=== PATIENT | male | born 1965 | race African-American/Black ===

== ENCOUNTER 2020-02-25 09:35 | Inpatient (IN) | payer OTHER ==
--- NOTE | 2020-02-25 10:06 | BHS.RME ---
Substance Use & Tx History - Substance Use History Alcohol Substance amount: 1.5 pints Vodka Frequency of use: Daily Substance route: Oral Date of Last Use: 02/24/20 Cocaine-Crack Substance amount: $300 Frequency of use: Daily Substance route: Smoking Date of Last Use: 02/24/20 Marijuana/Hashish Substance amount: 5 blunts Frequency of use: Daily Substance route: Smoking Date of Last Use: 02/24/20 Klonopin Substance amount: one white, one orange Frequency of use: Daily Substance route: Oral Date of Last Use: 02/24/20 Nicotine Substance amount: 10 cigs Frequency of use: Daily Substance route: Smoking Date of Last Use: 02/25/20 Heroin Substance amount: 2 bags Frequency of use: Less than 3 times per week Substance route: Inhalation (ex: sniffing or snorting) Date of Last Use: 02/24/20 Physical/Psych/Mental Status - Behavior General Behavior: Increased activity (restlessness, agitation) Eye Contact: Normal - Cooperativeness Cooperativeness: Cooperative - Thinking Thought Processes: Tight Thought content: Future oriented - Physical Health Problems Is patient presently having any pain?: No Does patient presently have any injuries (include location): No Does patient currently have a fever: No COWS - Scale Resting Pulse: 0= [place] 80 or Below Sweatin= Chills/Flushing Restless Observation: 1= Difficult to Sit Still Pupil Size: 1= Pupils >than Normal Bone or Joint Aches: 1= Mild Discomfort Runny Nose/ Eye Tearin= None GI Upset > 30mins: 0= None Tremor Observation: 2= Slight Tremor Visible Yawning Observation: 0= None Anxiety or Irritability: 2=Irritable/Anxious Goose Flesh Skin: 0=Smooth Skin COWS Score: 8 CIWA Nausea/Vomitin Muscle Tremors: 3 Anxiety: 3 Agitation: 1-Slight > Activity Paroxysmal Sweats: 1-Minimal Palms Moist Orientation: 0-Oriented Tacttile Disturbances: 0-None Auditory Disturbances: 1-Very Mild Visual Disturbances: 1-Very Mild Sensitivity Headache: 0-None Present CIWA-Ar Total Score: 12
[2020-02-25 10:34] VITALS: BMI 34.5
--- NOTE | 2020-02-25 11:06 | HP ---
COWS - Scale Resting Pulse: 0= [place] 80 or Below Sweatin= Chills/Flushing Restless Observation: 1= Difficult to Sit Still Pupil Size: 1= Pupils >than Normal Bone or Joint Aches: 1= Mild Discomfort Runny Nose/ Eye Tearin= None GI Upset > 30mins: 0= None Tremor Observation: 2= Slight Tremor Visible Yawning Observation: 0= None Anxiety or Irritability: 2=Irritable/Anxious Goose Flesh Skin: 0=Smooth Skin COWS Score: 8 CIWA Score Nausea/Vomitin Muscle Tremors: 3 Anxiety: 3 Agitation: 1-Slight > Activity Paroxysmal Sweats: 1-Minimal Palms Moist Orientation: 0-Oriented Tacttile Disturbances: 0-None Auditory Disturbances: 1-Very Mild Visual Disturbances: 1-Very Mild Sensitivity Headache: 0-None Present CIWA-Ar Total Score: 12 - Admission Criteria OASAS Guidelines: Admission for Medically Managed Detox: Requires at least one of the followin. CIWA greater than 12 2. Seizures within the past 24 hours 3. Delirium tremens within the past 24 hours 4. Hallucinations within the past 24 hours 5. Acute intervention needed for co occurring medical disorder 6. Acute intervention needed for co occurring psychiatric disorder 7. Severe withdrawal that cannot be handled at a lower level of care (continued vomiting, continued diarrhea, abnormal vital signs) requiring intravenous medication and/or fluids 8. Admitting History and Physical - Admission Chief Complaint: Detox from alcohol, heroin, crack, benzo's History of Present Illness: CC: 'Detox from alcohol, heroin, crack, benzo's' HPI: Hiro is a 55 year old with polysubstance abuse (alcohol, heroin, crack, benzo's, marijuana, PCP), who presents for detox. He has attempted detox 3 times before. He was last admitted at [facility] detox 6 weeks ago and received 4 days of Librium; however, he relapsed the same day. He is a and suffers from PTSD; he is not currently on medication, previously on Remeron. 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) Heroin Substance amount: 2 bags Frequency of use: Every two days Substance route: Inhalation (ex: sniffing or snorting) Date of Last Use: 02/24/20 Cocaine-Crack Substance amount: $300 Frequency of use: Daily Substance route: Smoking Date of Last Use: 02/24/20 Age of first use: 32 Marijuana/Hashish Substance amount: 5 blunts Frequency of use: Daily Substance route: Smoking Date of Last Use: 02/24/20 Klonopin Substance amount: one white, one orange (2 mg/day) Frequency of use: Daily Substance route: Oral Date of Last Use: 02/24/20 Age of first use: 49 Nicotine Substance amount: 10 cigs Frequency of use: Daily Substance route: Smoking Date of Last Use: 02/25/20 PMH: None PSH:None Psych: depression, anxiety, PTSD--admitted at [facility] 3 years ago Social: Homeless Legal: None History Source: Patient Limitations to Obtaining History: No Limitations - Smoking History Smoking history: Current every day smoker Have you smoked in the past 12 months: Yes Aproximately how many cigarettes per day: 10 - Alcohol/Substance Use Hx Alcohol Use: Yes - Social History Usual Living Arrangement: Yes: Alone Admission [facility] Chief Complaint: Detox from alcohol, heroin, crack, benzo's Allergies/Adverse Reactions: Allergies Allergy/AdvReac Type Severity Reaction Status Date / Time shellfish derived Allergy Intermediate Swelling Verified 02/25/20 10:36 Exam Limitations: No Limitations - Ebola screening Have you traveled outside of the country in the last 21 days: No Have you had contact with anyone from an Ebola affected area: No Have you been sick,other than usual withdrawal symptoms: No Do you have a fever: No - Review of Systems Constitutional: No Symptoms Reported EENT: denies: Eye Pain, Ear Pain, Nose Congestion Respiratory: denies: Cough, Shortness of Breath Cardiac: denies: Chest Pain, Edema, Syncope GI: reports: No Symptoms Reported. denies: Constipated, Diarrhea, Nausea, Vomiting : reports: No Symptoms Reported Musculoskeletal: reports: No Symptoms Reported, Other (low back pain) Neuro: denies: Headache, Numbness, Tingling Endocrine: reports: No Symptoms Reported Hematology: reports: No Symptoms Reported. denies: Blood Clots Psychiatric: reports: No Sypmtoms Reported, Judgement Intact, Orientated x3 Patient History - Patient Medical History Hx Asthma: No Hx Chronic Obstructive Pulmonary Disease (COPD): No Hx Cardiac Disorders: No Hx Hypertension: No Hx Seizures: No Hx Gastrointestinal Disorders: No Hx Genitourinary Disorders: No Hx Sexually Transmitted Disorders: No Hx Renal Disease (ESRD): No Hx Depression: Yes Hx Suicide Attempt: No Hx Schizophrenia: No - Patient Surgical History Past Surgical History: No Hx Neurologic Surgery: No Hx Cataract Extraction: No Hx Cardiac Surgery: No Hx Lung Surgery: No Hx Breast Surgery: No Hx Breast Biopsy: No Hx Abdominal Surgery: No Hx Appendectomy: No Hx Cholecystectomy: No Hx Genitourinary Surgery: No Hx Section: No Hx Orthopedic Surgery: No Anesthesia Reaction: No - PPD History Previous Implant?: Yes Documented Results: Negative w/proof Implanted On Prior R Admission?: No - Smoking Cessation Smoking history: Current every day smoker Have you smoked in the past 12 months: Yes Aproximately how many cigarettes per day: 10 Hx Chewing Tobacco Use: No Initiated information on smoking cessation: Yes 'Breaking Loose' booklet given: 02/25/20 - Substances abused Alcohol Substance route: Oral Frequency: Daily Amount used: 1-2 pts vodka Age of first use: 16 Date of last use: 02/24/20 Heroin Substance route: Inhalation Frequency: Daily Amount used: 2bags Age of first use: 49 Date of last use: 02/24/20 Crack Substance route: Smoking Frequency: Daily Amount used: $300 Age of first use: 32 Date of last use: 02/24/20 Benzodiazepine (Klonopin) Substance route: Oral Frequency: Daily Amount used: 1 white/ 1 orange Age of first use: 49 Date of last use: 02/24/20 Marijuana/Hashish Substance route: Smoking Frequency: Daily Amount used: 5 blunts Age of first use: 16 Date of last use: 02/24/20 Admission Physical Exam BHS - Vital Signs Vital Signs: Vital Signs - 24 hr 02/25/20 02/25/20 10:31 10:37 Temperature 97.4 F L 97.4 F L Pulse Rate 71 71 Respiratory 19 19 Rate Blood Pressure 130/83 130/83 - Physical General Appearance: Yes: Within Normal Limits HEENTM: Yes: Hearing grossly Normal, Normocephalic, Normal Voice, HUNTER Respiratory: Yes: Within Normal Limits, Lungs Clear, Normal Breath Sounds, No Respiratory Distress, No Accessory Muscle Use Neck: Yes: Within Normal Limits Breast: Yes: Breast Exam Deferred Cardiology: Yes: Within Normal Limits, Regular Rhythm, Regular Rate, S1, S2 Abdominal: Yes: Within Normal Limits, Non Tender, Flat, Soft Genitourinary: Yes: Within Normal Limits Back: Yes: Within Normal Limits Musculoskeletal: Yes: Within Normal Limits, full range of Motion, Gait Steady, Back pain Extremities: Yes: Within Normal Limits, Normal Inspection, Normal Range of Motion. No: Tremors, Coldness, Cyanosis Neurological: Yes: Within Normal Limits, Fully Oriented, Normal Mood/Affect, Normal Response Integumentary: Yes: Dry, Warm, Other (raised papule from bee sting on posterior neck, not tender) - Diagnostic (1) Alcohol withdrawal Current Visit: Yes Status: Acute Qualifiers: Complication of substance-induced condition: uncomplicated Qualified Code(s): F10.230 - Alcohol dependence with withdrawal, uncomplicated (2) Opioid abuse Current Visit: Yes Status: Acute (3) Cocaine abuse Current Visit: Yes Status: Acute (4) Benzodiazepine abuse Current Visit: Yes Status: Acute (5) Marijuana use Current Visit: Yes Status: Acute (6) Nicotine addiction Current Visit: Yes Status: Acute Qualifiers: Nicotine product type: cigarettes (7) PCP (phencyclidine) abuse Current Visit: Yes Status: Acute (8) PTSD (post-traumatic stress disorder) Current Visit: Yes Status: Chronic (9) Anxiety Current Visit: Yes Status: Chronic (10) Depression Current Visit: Yes Status: Chronic Cleared for Admission S - Detox or Rehab [facility] Level of Care: Medically Managed Screened but not Admitted - Documentation of Visit Screened but not Admitted: No Breathalyzer - Breathalyzer Breathalyzer: 0 Urine Drug Screen - Test Device Lot number: [id number] Expiration date: 02/14/22 - Control Is test valid?: Yes - Results Drug screen NEGATIVE: No Urine drug screen results: THC-Marijuana, RAULITO-Cocaine, MOP-Opiates, BAR- Barbiturates Inpatient Rehab Admission - Rehab Decision to Admit Inpatient rehab admission?: No
[2020-02-25] MEDS ORDERED: MAGNESIUM HYDROX 2400MG/30ML ORAL SUSPENSION 30 ML CUP PO PRN (11:23)
[2020-02-25] MEDS ORDERED: BISMUTH SUBSALICYLATE 262 MG/15 ML BTL PO PRN (11:23)
[2020-02-25] MEDS ORDERED: ACETAMINOPHEN 325 MG TABLET (FP) PO PRN ×2 (11:23)
[2020-02-25] MEDS ORDERED: MAG HYDROX/AL HYDROX/SIMETH 30 ML UNIT-DOSE CUP PO PRN (11:23)
[2020-02-25] MEDS ORDERED: MENTHOL/PHENOL 1 EACH UD MM PRN (11:23)
[2020-02-25] MEDS ORDERED: MAGNESIUM CITRATE 300 ML BOTTLE PO PRN (11:23)
[2020-02-25] MEDS ORDERED: ONDANSETRON *ODT* 4 MG TABLET SL ONE (11:23)
[2020-02-25] MEDS ORDERED: NICOTINE POLACRILEX 2 MG GUM BUC PRN (11:23)
[2020-02-25] MEDS: chlordiazePOXIDE HCL 25 MG CAPSULE PO PRN (12:02)
[2020-02-25] MEDS: NICOTINE 21 MG/24 HOURS TOPICAL PATCH TD SCH (12:11)
--- NOTE | 2020-02-25 15:01 | PN ---
[facility] Progress Note Note: Patient was approached at bedside. 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 I will see you tomorrow". Please reconsult tomorrow if patient is willing to see a psychiatrist
[2020-02-25 15:14] LABS: HEMATOCRIT 40.4 % (35.4-49); HEMOGLOBIN 13.2 GM/dL (11.7-16.9); MCH 27.8 pg (25.7-33.7); MCHC 32.6 g/dl (32.0-35.9); MEAN CELL VOLUME 85.2 fl (80-96); MEAN PLT VOLUME 8.4 fl (7.5-11.1); PLATELET COUNT 262 K/MM3 (134-434); RBC 4.74 M/mm3 (4.00-5.60); RDW 15.5 % (11.9-15.9); WHITE BLOOD COUNT 6.7 K/mm3 (4.0-10.0)
[2020-02-25 15:25] LABS: ALBUMIN 3.8 g/dl (3.4-5.0); BILIRUBIN,TOTAL 0.3 mg/dL (0.2-1); BLOOD UREA NITROGEN 19.1 mg/dL (7-18); CALCIUM 9.1 mg/dL (8.5-10.1); CREATININE 1.2 mg/dL (0.55-1.3); POTASSIUM 3.6 mmol/L (3.5-5.1); TOT PROT 7.4 g/dl (6.4-8.2)
--- NOTE | 2020-02-25 15:47 | EKG ---
Test Reason : Blood Pressure : / mmHG Vent. Rate : 070 BPM Atrial Rate : 070 BPM P-R Int : 160 ms QRS Dur : 092 ms QT Int : 406 ms P-R-T Axes : 061 050 -63 degrees QTc Int : 438 ms NORMAL SINUS RHYTHM POSSIBLE LEFT ATRIAL ENLARGEMENT T WAVE ABNORMALITY, CONSIDER INFERIOR ISCHEMIA ABNORMAL ECG NO PREVIOUS ECGS AVAILABLE Confirmed by LUX HERNANDEZ MD ([id number]) on 02/25/2020 3:47:06 PM Referred By: Confirmed By:LUX HERNANDEZ MD
--- NOTE | 2020-02-25 16:28 | PN ---
Teaching Attending Note Name of Resident: Gemini Maria ATTENDING PHYSICIAN STATEMENT I saw and evaluated the patient. I reviewed the resident's note and discussed the case with the resident. I agree with the resident's findings and plan as documented. SUBJECTIVE: OBJECTIVE: ASSESSMENT AND PLAN: 1. Alcohol use disorder Plan 1. Librium detox protocol
[2020-02-25] MEDS: METHOCARBAMOL 500 MG TABLET PO PRN (17:42)
[2020-02-25] MEDS: IBUPROFEN 400 MG TABLET (FP) PO PRN (17:42)
[2020-02-25] MEDS: chlordiazePOXIDE HCL 25 MG CAPSULE PO SCH ×2 (17:42→22:33)
[2020-02-25] MEDS: THIAMINE HCL 100 MG TABLET (FP) PO SCH (22:33)
[2020-02-25] MEDS: MELATONIN 5 MG TABLETS PO SCH (22:33)
[2020-02-26] MEDS: chlordiazePOXIDE HCL 25 MG CAPSULE PO SCH ×4 (06:08→22:52)
[2020-02-26] MEDS: PRENATAL VITAMINS W/ FOLIC ACID TABLET (FP) PO SCH (10:54)
[2020-02-26] MEDS: NICOTINE 21 MG/24 HOURS TOPICAL PATCH TD SCH (10:55)
--- NOTE | 2020-02-26 14:38 | CONSULT ---
[facility] Psychiatric Consult - Data Date of interview: 02/26/20 Admission source: [facility] Identifying data: Patient is approached at bedside for psychiatric evaluation. Found to be confrontational, abrasive, uncooperative and dismissive of this engineering writer. " Why do I have to talk to psychiatrists ? I don't have to answer to your questions. I don't need your services." Nursing staff is made aware of patient's refusal of psychiatric services.
--- NOTE | 2020-02-26 15:23 | PN ---
S CIWA - CIWA Score Nausea/Vomitin-No Nausea/No Vomiting Muscle Tremors: 2 Anxiety: 4-Mod. Anxious/Guarded Agitation: 2 Paroxysmal Sweats: 1-Minimal Palms Moist Orientation: 0-Oriented Tacttile Disturbances: 2-Mild Itch/Numbness/Burn Auditory Disturbances: 1-Very Mild Visual Disturbances: 0-None Headache: 0-None Present CIWA-Ar Total Score: 12 S COWS - Scale Resting Pulse: 1= [place] 81-100 Sweatin= Chills/Flushing Restless Observation: 0= Sits Still Pupil Size: 0= Normal to Room Light Bone or Joint Aches: 2= Severe Diffuse Aches Runny Nose/ Eye Tearin= None GI Upset > 30mins: 0= None Tremor Observation of Outstretched Hands: 0= None Yawning Observation: 1= 1-2x During Session Anxiety or Irritability: 2=Irritable/Anxious Goose Flesh Skin: 0=Smooth Skin COWS Score: 7 S Progress Note (SOAP) Subjective: Anxious, Fatigue, Body Aches. Objective: Patient A & O X 3; In No Acute Distress. 02/26/20 15:21 Vital Signs Temperature 97.1 F L 02/26/20 12:48 Pulse Rate 89 02/26/20 12:48 Respiratory Rate 16 02/26/20 12:48 Blood Pressure 131/79 02/26/20 12:48 O2 Sat by Pulse Oximetry (%) 95 02/26/20 12:48 Laboratory Tests 02/25/20 02/25/20 02/25/20 11:05 11:05 11:05 WBC 6.7 RBC 4.74 Hgb 13.2 Hct 40.4 MCV 85.2 MCH 27.8 MCHC 32.6 RDW 15.5 Plt Count 262 MPV 8.4 Sodium 142 Potassium 3.6 Chloride 109 H Carbon Dioxide 24 Anion Gap 9 BUN 19.1 H Creatinine 1.2 Est GFR (CKD-EPI)AfAm 80.10 Est GFR (CKD-EPI)NonAf 69.11 Random Glucose 176 H Calcium 9.1 Total Bilirubin 0.3 AST 20 ALT 35 Alkaline Phosphatase 102 Total Protein 7.4 Albumin 3.8 Syphilis Serology Non-reactive COVID-19 (MADDIE) 02/25/20 12:45 WBC RBC Hgb Hct MCV MCH MCHC RDW Plt Count MPV Sodium Potassium Chloride Carbon Dioxide Anion Gap BUN Creatinine Est GFR (CKD-EPI)AfAm Est GFR (CKD-EPI)NonAf Random Glucose Calcium Total Bilirubin AST ALT Alkaline Phosphatase Total Protein Albumin Syphilis Serology COVID-19 (MADDIE) Not detected Lab Results noted. Glucose Level noted to be elevated. Patient denies known history of Diabetes Mellitus. 02/26/20 15:22 02/26/20 15:22 Assessment: 02/26/20 15:22 WITHDRAWAL SYMPTOMS. Plan: Continue Detox. Increase Daily Oral Water Intake. Fasting Glucose Level ordered for Tomorrow AM for elevated Random Glucose Level noted on Detox Admission laboratory assessment.
[2020-02-26] MEDS: THIAMINE HCL 100 MG TABLET (FP) PO SCH (22:52)
[2020-02-26] MEDS: MELATONIN 5 MG TABLETS PO SCH (22:52)
[2020-02-27] MEDS: chlordiazePOXIDE HCL 25 MG CAPSULE PO SCH ×4 (06:09→22:49)
[2020-02-27] MEDS: NICOTINE 21 MG/24 HOURS TOPICAL PATCH TD SCH (11:21)
[2020-02-27] MEDS: PRENATAL VITAMINS W/ FOLIC ACID TABLET (FP) PO SCH (11:21)
--- NOTE | 2020-02-27 17:09 | PN ---
S CIWA - CIWA Score Nausea/Vomitin-Mild Nausea/No Vomiting Muscle Tremors: 2 Anxiety: 2 Agitation: 2 Paroxysmal Sweats: 2 Orientation: 0-Oriented Tacttile Disturbances: 0-None Auditory Disturbances: 0-None Visual Disturbances: 0-None Headache: 0-None Present CIWA-Ar Total Score: 9 BHS Progress Note (SOAP) Subjective: Interrupted sleep Objective: 02/27/20 17:06 Last Vital Signs Temp Pulse Resp BP Pulse Ox 97.1 F L 84 16 129/71 98 02/27/20 13:37 02/27/20 13:37 02/27/20 13:37 02/27/20 13:37 02/27/20 13:37 Laboratory Tests 02/25/20 02/25/20 02/25/20 11:05 11:05 11:05 WBC 6.7 RBC 4.74 Hgb 13.2 Hct 40.4 MCV 85.2 MCH 27.8 MCHC 32.6 RDW 15.5 Plt Count 262 MPV 8.4 Sodium 142 Potassium 3.6 Chloride 109 H Carbon Dioxide 24 Anion Gap 9 BUN 19.1 H Creatinine 1.2 Est GFR (CKD-EPI)AfAm 80.10 Est GFR (CKD-EPI)NonAf 69.11 Random Glucose 176 H Calcium 9.1 Total Bilirubin 0.3 AST 20 ALT 35 Alkaline Phosphatase 102 Total Protein 7.4 Albumin 3.8 Syphilis Serology Non-reactive COVID-19 (MADDIE) 02/25/20 12:45 WBC RBC Hgb Hct MCV MCH MCHC RDW Plt Count MPV Sodium Potassium Chloride Carbon Dioxide Anion Gap BUN Creatinine Est GFR (CKD-EPI)AfAm Est GFR (CKD-EPI)NonAf Random Glucose Calcium Total Bilirubin AST ALT Alkaline Phosphatase Total Protein Albumin Syphilis Serology COVID-19 (MADDIE) Not detected Labs reviewed: azotemia and hyperglycemia Assessment: 02/27/20 17:07 Withdrawal sxs Noted with azotemia and hyperglycemia Plan: Continue detox Encourage PO water intake Azotemia: encourage to drink more water Hyperglycemia: denies DM, repeat bmp, send A1c
[2020-02-27] MEDS: chlordiazePOXIDE HCL 25 MG CAPSULE PO PRN (20:02)
[2020-02-27] MEDS: THIAMINE HCL 100 MG TABLET (FP) PO SCH (22:49)
[2020-02-27] MEDS: MELATONIN 5 MG TABLETS PO SCH (22:49)
[2020-02-28] MEDS ORDERED: chlordiazePOXIDE HCL 10 MG CAPSULE PO PRN
[2020-02-28] MEDS: chlordiazePOXIDE HCL 10 MG CAPSULE PO SCH ×4 (06:30→22:34)
--- NOTE | 2020-02-28 09:09 | PN ---
S Progress Note Note: pt had ordered repeat lab work for this AM; however, pt refused further lab drawn. pt was explained the reason for repeat lab to make sure his BUN level is decreasing however he states I dont want any blood drawn. d/c order.
[2020-02-28] MEDS: NICOTINE 21 MG/24 HOURS TOPICAL PATCH TD SCH (11:07)
[2020-02-28] MEDS: PRENATAL VITAMINS W/ FOLIC ACID TABLET (FP) PO SCH (11:07)
--- NOTE | 2020-02-28 11:23 | PN ---
[facility] CIWA - CIWA Score Nausea/Vomitin-No Nausea/No Vomiting Muscle Tremors: 1-None Visible, but Harper Anxiety: 1-Mildly Anxious Agitation: 1-Slight > Activity Paroxysmal Sweats: No Perspiration Orientation: 0-Oriented Tacttile Disturbances: 0-None Auditory Disturbances: 0-None Visual Disturbances: 0-None Headache: 0-None Present CIWA-Ar Total Score: 3 BHS Progress Note (SOAP) Subjective: tired Objective: 02/28/20 11:23 Vital Signs Temperature 97.3 F L 02/28/20 06:00 Pulse Rate 75 02/28/20 06:00 Respiratory Rate 18 02/28/20 06:00 Blood Pressure 142/87 02/28/20 06:00 O2 Sat by Pulse Oximetry (%) 96 02/28/20 06:36 aaox3 ambulating no acute distress Assessment: 02/28/20 11:23 mild withdrawals Plan: continue detox
[2020-02-28] MEDS: IBUPROFEN 400 MG TABLET (FP) PO PRN (14:44)
[2020-02-28] MEDS: METHOCARBAMOL 500 MG TABLET PO PRN (14:44)
[2020-02-28] MEDS: MELATONIN 5 MG TABLETS PO SCH (22:34)
[2020-02-28] MEDS: THIAMINE HCL 100 MG TABLET (FP) PO SCH (22:34)
[2020-02-29] MEDS ORDERED: chlordiazePOXIDE HCL 10 MG CAPSULE PO SCH (05:00)
[2020-02-29 06:45] VITALS: BP 137/68; PULSE 76; TEMP 97.8
--- NOTE | 2020-02-29 08:41 | PN ---
[facility] Progress Note Note: Pt was encouraged to stay until seen by medical provider however pt refused and insisted to leave. pt chose to sign out AMA regardless of risk of relapse, seizure, DT, OD and/ loss. pt was escorted off the unit before 8am by security due to his aggression and impulsive behaviour.
--- NOTE | 2020-02-29 08:48 | DS ---
[facility] Detox Discharge Summary Admission Date: 02/25/20 - History Present History: Alcohol Dependence, Cannabis Dependence, Cocaine Dependence, Pcp Dependence - Physical Exam Results Vital Signs: Vital Signs Temperature 97.8 F 02/29/20 06:43 Pulse Rate 76 02/29/20 06:43 Respiratory Rate 18 02/29/20 06:43 Blood Pressure 137/68 02/29/20 06:43 O2 Sat by Pulse Oximetry (%) 100 02/29/20 06:43 - Medication Discharge Medications: Ambulatory Orders NK [No Known Home Medication] 02/25/20 - Diagnosis (1) Alcohol withdrawal Status: Chronic Qualifiers: Complication of substance-induced condition: uncomplicated Qualified Code(s): F10.230 - Alcohol dependence with withdrawal, uncomplicated (2) Benzodiazepine abuse Status: Chronic (3) Cocaine abuse Status: Chronic (4) Marijuana use Status: Acute (5) Nicotine addiction Status: Chronic Qualifiers: Nicotine product type: cigarettes Substance use status: uncomplicated Qualified Code(s): F17.210 - Nicotine dependence, cigarettes, uncomplicated (6) Opioid abuse Status: Acute (7) PCP (phencyclidine) abuse Status: Chronic (8) Anxiety Status: Chronic (9) Depression Status: Chronic (10) PTSD (post-traumatic stress disorder) Status: Chronic - AMA Did Patient Leave Against Medical Advice: Yes
[2020-03-01] MEDS ORDERED: chlordiazePOXIDE HCL 10 MG CAPSULE PO ONE (05:00)
== END 2020-02-29 07:00 | disposition left against medical advice (07) | DRG 770 ==
LOC: YASAS 09:35 → Y6N 10:56
PROVIDERS: ADMIT Allergy & Immunology; ATTEND Allergy & Immunology
PROC: HZ2ZZZZ Detoxification Services for Substance Abuse Treatment (ICD-10-PCS; principal; 2020-02-25)
DX: F10.230 Alcohol dependence with withdrawal, uncomplicated (principal); F14.20 Cocaine dependence, uncomplicated; F13.20 Sedative, hypnotic or anxiolytic dependence, uncomplicated; F16.20 Hallucinogen dependence, uncomplicated; F12.20 Cannabis dependence, uncomplicated; F17.210 Nicotine dependence, cigarettes, uncomplicated; F41.9 Anxiety disorder, unspecified; F32.9 Major depressive disorder, single episode, unspecified; F43.10 Post-traumatic stress disorder, unspecified; M54.5 Low back pain; R79.89 Other specified abnormal findings of blood chemistry; R73.9 Hyperglycemia, unspecified; Z91.013 Allergy to seafood; Z59.0 Homelessness
CPT/HCPCS: 36415; 80053; 85027; 86780; 93005; 93010; U0003